=== PATIENT | female | born 1975 | race African-American/Black ===

== ENCOUNTER 2020-08-10 09:46 | Emergency (ER) | payer OTHER, SELFPAY ==
[2020-08-10] VITALS (21 sets, daily range): BP systolic 123–141; BP diastolic 72–93; PULSE 67–93; RESP 12–22; TEMP 37.1; O2SAT 100
--- NOTE | ~2020-08-10 | XR_ITS ---
EXAMINATION: XR chest 2V EXAM DATE: 08/10/2020 10:27 INDICATION: Right-sided chest pain for couple of days. TECHNIQUE: Frontal and lateral projections of the chest obtained and reviewed. Comparison is made to prior examination from 07/24/2017. FINDINGS: The lungs are clear. There are no pleural effusions. The cardiomediastinal silhouette is within normal limits. There is no pneumothorax suspected. The bones and soft tissues are unremarkab le. There is no significant interval change. IMPRESSION: No acute cardiopulmonary findings. Reviewed, dictated and finalized at location B. AND BEVERAGE CONTROLLER
--- NOTE | 2020-08-10 09:54 | ECG_ITS ---
Measurements Intervals [place] Rate: 82 P: 63 MI: 179 QRS: 74 QRSD: 84 T: 49 QT: 356 QTc: 418 Interpretive Statements SINUS RHYTHM NORMAL ECG Electronically Signed On 08-10-2020 9:56:39 STAVE LOG RIPSAW OPERATOR by Fred Camacho D.O.
[2020-08-10 10:29] LABS: Basophils Percent Auto 0.6 % (0.2-1.2); Eosinophils Absolute Auto 0.2 K/mm3 (0-0.3); Eosinophils Percent Auto 5.8 % (0-4.4); Hematocrit 36.8 % (37.0-47.0); Hemoglobin 11.8 g/dL (12.0-15.0); Immature Granulocyte Absolute 0.01 K/mm3 (0.00-0.031); Immature Granulocyte Percent A 0.3 % (0-0.5); Lymphocytes Absolute Auto 1.48 K/mm3 (0.9-3.2); Mean Corpuscular HGB Conc 32.1 g/dl (32-36); Mean Corpuscular Hemoglobin 28.8 pg (26-34); Mean Corpuscular Volume 89.8 fl (80-100); Mean Platelet Volume 9.6 fl (7.4-10.4); Monocytes Absolute Auto 0.3 K/mm3 (0.1-0.6); Monocytes Percent Auto 7.6 % (2.6-8.5); Neutrophils Absolute Auto 1.3 K/mm3 (1.3-6.7); Neutrophils Percent Auto 40.7 % (45.5-73.1); Platelet Count Result 250 k/mm3 (150-375); Red Cell Distribution Width 12.7 % (11.5-14.5); White Blood Count 3.3 K/mm3 (4.5-10.0)
--- NOTE | 2020-08-10 10:33 | ED.CHESTPAIN ---
HPI - Chest Pain General Chief Complaint: Chest Pain Stated Complaint: chest pain Time Seen by Provider: 08/10/20 09:49 Source: patient Mode of arrival: ambulatory Limitations: no limitations History of Present Illness HPI narrative: This is a 44 year old female who presents for evaluation right upper chest pain. She developed pain 2 days ago . This pain has been intermittent. She notices pain when she moves or leans forward. She came to ER because she developed right posterior back pain. She denies focal weakness, numbness or tingling. She denies cough, shortness of breath, abdominal pain, fever, chills. SHe took tylenol for her pain without relief of her pain. Related Data Allergies Allergy/AdvReac Type Severity Reaction Status Date / Time iodine Allergy Intermediate RASH Verified 12/29/19 13:22 Contrast Media Allergy Intermediate RASH Uncoded 12/29/19 13:22 Review of Systems Review of Systems: Narrative: CONSTITUTIONAL: Denies fever, chills, or sweats. EYES: Denies visual changes, redness, or discharge. ENT: Denies rhinorrhea, congestion, sore throat, or otalgia. CARDIOVASCULAR: , palpitations, or edema. RESPIRATORY: Denies cough or dyspnea. GASTROINTESTINAL: Denies abdominal pain, nausea, vomiting, or diarrhea. GENITOURINARY: Denies dysuria or hematuria. SKIN: Denies rash or itching. MUSCULOSKELETAL: Denies, joint pain, or myalgia. NEUROLOGIC: Denies headache, numbness, or weakness. PSYCHIATRIC: Denies anxiety or depression. All systems reviewed & are unremarkable except as noted in HPI and below Eyes: Eyes: Denies blind spots and Denies blurry vision PMFSH Past Medical History Medical History (Updated 08/10/20 @ 13:04 by Asha Acosta MD) Kidney mass Surgical History Surgical History (Updated 08/10/20 @ 10:59 by Asha Acosta MD) History of nephrectomy Social History Social History (Updated 08/10/20 @ 11:00 by Asha Acosta MD) Smoking status: Never smoker Alcohol intake: never Substance use: never Exam Narrative: Exam Narrative: GENERAL: Well-appearing, well-nourished, and in no acute distress. HEAD: Normocephalic, atraumatic EYES: PERRLA and EOMI, conjunctiva clear without discharge THROAT:Mucous membranes moist, NECK: Supple, without lymphadenopathy or mass RESPIRATORY: No respiratory distress, Airway patent, Respirations non-labored, Clear to auscultation without rales, rhonchi or wheeze; right sternal chest tenderness HEART: Regular rate and rhythm. No murmur heard. Normal peripheral pulses. ABDOMEN: Soft, nontender, nondistended, normal active bowel sounds. No masses. No rebound or guarding, No organomegaly. EXTREMITIES: No edema, normal strength with full range of motion. SKIN: Warm, dry, normal color without rash NEURO: Alert and oriented x3. CN 2-12 grossly intact. No focal deficits. PSYCH: Normal mood and affect. Course Reevaluation(s) Reevaluation #1: PAtient reports her pain improved after toradol. I Discussed labs are unremarkable. Troponin is negative and this is unlikely angina. She also has negative dimer. No mass found. I discussed with patient we will treat as musculoskeletal and if it worsens to return to ER or follow up with your primary care physician. Date: 08/10/20 Time: 13:01 Vital Signs Vital signs: Vital Signs Pulse Rate 93 08/10/20 09:50 Respiratory Rate 18 08/10/20 09:50 Blood Pressure 141/93 H 08/10/20 09:50 Pulse Oximetry 100 08/10/20 09:50 Temperature 98.7 F 08/10/20 10:10 Pulse Rate 74 08/10/20 13:20 Respiratory Rate 16 08/10/20 13:20 Blood Pressure 138/72 08/10/20 13:20 Pulse Oximetry 100 08/10/20 13:20 MDM - Chest Pain Lab Data Attestation: I reviewed the patient's lab results. Result diagrams: 08/10/20 10:21 08/10/20 10:21 Labs: Lab Results 08/10/20 08/10/20 08/10/20 Range/Units 10:21 10:21 10:21 WBC 3.3 L (4.5-10.0) K/mm3 RBC
[2020-08-10 10:40] LABS: Anion Gap 6 mmol/L (8-16); Blood Urea Nitrogen 19 mg/dL (7-17); Calcium 9.1 mg/dL (8.4-10.2); Carbon Dioxide 29 mmol/L (22-30); Chloride 103 mmol/L (98-107); Estimated CRCL calculation 47 ml/min; Estimated Glomerular Filt Rate > 60; Glucose 88 mg/dL (65-105); Potassium 3.7 mmol/L (3.4-5.0); Sodium 138 mmol/L (137-145)
[2020-08-10 10:41] LABS: Alanine Aminotransferase 20 U/L (4-35); Albumin Level 4.2 g/dL (3.5-5.1); Alkaline Phosphatase 65 U/L (38-126); Aspartate Amino Transferase 31 U/L (14-36); Bilirubin,Total 0.5 mg/dL (0.2-1.3); Lipase 143 U/L (23-300)
[2020-08-10 10:42] LABS: INR 0.9; Prothrombin Time 12.8 Seconds (11.1-14.7)
[2020-08-10 10:43] LABS: Partial Thromboplastin Time 28.6 SECONDS (22.3-36.8)
[2020-08-10 10:45] LABS: D Dimer 0.35 ug/mL (<0.48)
[2020-08-10 10:52] LABS: Troponin I < 0.012 ng/mL (0.000-0.034)
[2020-08-10] MEDS: LACTATED RINGERS 1,000 ML 999 ML IV CONT (11:04)
[2020-08-10] MEDS: KETOROLAC 15 MG/ML VIAL (*BKC) IV PUSH (11:05)
== END 2020-08-10 13:30 | disposition home or self-care (01) ==
PROVIDERS: Emergency Provider General Practice
DX: R07.89 Other chest pain (principal); Z90.5 Acquired absence of kidney
CPT/HCPCS: 36415; 71046; 80048; 80076; 81025; 83690; 84484; 85025; 85380; 85610; 85730; 93005; 96361; 96374; 99284; J1885; J7120

== ENCOUNTER → 2022-02-12 08:14 | Outpatient (CLI) | payer OTHER, SELFPAY ==
--- NOTE | ~2022-02-12 | XR_ITS ---
EXAMINATION: XR chest 2V DATE: 02/12/2022 08:34 INDICATION: Latent tuberculosis TECHNIQUE: PA and lateral views of the chest were obtained. COMPARISON: Chest radiograph dated / FINDINGS: The lungs remain clear with no focal airspace opacities, pulmonary edema, pleural effusion or pneumot horax. The cardiomediastinal silhouette is normal. Visualized bones and soft tissues are unremarkable . IMPRESSION: 1. Normal chest radiograph. Reviewed, dictated and finalized at location A. IMPRESSION: 1. Normal chest radiograph.
== END ==
DX: Z22.7 Latent tuberculosis (principal)
CPT/HCPCS: 71046

== ENCOUNTER 2022-12-16 06:45 | Emergency (ER) | payer OTHER, SELFPAY ==
[2022-12-16] VITALS (20 sets, daily range): BP systolic 107–139; BP diastolic 68–92; PULSE 70–92; RESP 12–22; TEMP 34.7–36.8; O2SAT 97–100
--- NOTE | ~2022-12-16 | XR_ITS ---
EXAMINATION: XR knee LT min 4V DATE: 12/16/2022 09:02 INDICATION: Left knee pain. TECHNIQUE: 4 views of left knee were obtained. COMPARISON: None. FINDINGS: Bone alignment is normal. No fracture. There is a benign bone island in medial femoral cond yle. Joint spaces are well maintained. There is no knee joint effusion. IMPRESSION: 1. Normal left knee. Reviewed, dictated and finalized at location A. IMPRESSION: 1. Normal left knee.
--- NOTE | ~2022-12-16 | XR_ITS ---
EXAMINATION: XR chest 2V DATE: 12/16/2022 09:02 INDICATION: Chest pain. TECHNIQUE: Frontal and lateral views of the chest were obtained. COMPARISON: Chest 2 views 02/12/2022 FINDINGS: The chest demonstrates clear lungs without pneumonia, pleural effusion, or pneumothorax. Th e heart size is normal. IMPRESSION: 1. No acute cardiopulmonary disease. Reviewed, dictated and finalized at location A.
--- NOTE | 2022-12-16 06:57 | ECG_ITS ---
Measurements Intervals [place] Rate: 78 P: 52 WI: 170 QRS: 65 QRSD: 82 T: 32 QT: 360 QTc: 410 Interpretive Statements SINUS RHYTHM POSSIBLE LEFT ATRIAL ENLARGEMENT BORDERLINE ECG COMPARED TO ECG 08/10/2020 09:55:32 NO SIGNIFICANT CHANGES Electronically Signed On 12-16-2022 8:13:56 CDT by Fred Camacho D.O.
--- NOTE | 2022-12-16 08:18 | ED.CHESTPAIN ---
HPI - Chest Pain General Chief Complaint: Chest Pain Stated Complaint: chest pian Time Seen by Provider: 12/16/22 07:08 Source: patient and RN notes reviewed Mode of arrival: ambulatory Limitations: no limitations History of Present Illness HPI narrative: This is a 47 year old female who presents for evaluation of chest pain. Patient reports having dull aching chest pain for 2 weeks. Her pain is located to upper sternum and it is nonradiating. She notices pain more with movement and breathing. She denies nausea, vomiting cough, fever, shortness of breath. She also reports 2 months of anterior knee pain. She denies history of DVT, calf pain, OCP. She rates chest pain 6/10. She is taking tylenol for her pain. Related Data Allergies Allergy/AdvReac Type Severity Reaction Status Date / Time iodine Allergy Intermediate RASH Verified 12/16/22 07:10 Contrast Media Allergy Intermediate RASH Uncoded 12/16/22 07:10 Review of Systems Constitutional: Constitutional: Denies weakness Cardiovascular: Cardiovascular: Reports chest pain, Denies syncope, Denies rapid heart rate, Denies irregular heart rhythm, Denies leg edema and Denies dyspnea Respiratory: Respiratory: Denies chest congestion, Denies hemoptysis, Denies excessive phlegm production and Denies dyspnea Gastrointestinal: Gastrointestinal: Denies abdominal pain, Denies hematochezia, Denies diarrhea and Denies vomiting Genitourinary: Genitourinary: Denies hematuria and Denies dysuria Musculoskeletal: Musculoskeletal: Reports arthralgias, Denies joint swelling, Denies loss of height and Denies muscle weakness Neurologic: Denies syncope, Denies focal weakness and Denies weakness PMFSH Past Medical History Medical History Kidney mass Surgical History Surgical History History of nephrectomy Social History Social History Smoking status: Never smoker Alcohol intake: never Substance use: never Exam Narrative: GENERAL: Well-appearing, well-nourished, and in no acute distress. HEAD: Normocephalic, atraumatic EYES: PERRLA and EOMI, conjunctiva clear without discharge EARS: TM's clear bilaterally without erythema or dullness NOSE: Nares clear, no rhinorrhea or epistaxis THROAT:Mucous membranes moist, Oropharynx normal without erythema, exudate, peritonsillar swelling or fluctuance NECK: Supple, without lymphadenopathy or mass RESPIRATORY: No respiratory distress, Airway patent, Respirations non-labored, Clear to auscultation without rales, rhonchi or wheeze HEART: Regular rate and rhythm. No murmur heard. Normal peripheral pulses. ABDOMEN: Soft, nontender, nondistended, normal active bowel sounds. No masses. No rebound or guarding, No organomegaly. EXTREMITIES: No edema, normal strength with full range of motion. SKIN: Warm, dry, normal color without rash NEURO: Alert and oriented x3. CN 2-12 grossly intact. No focal deficits. PSYCH: Normal mood and affect. Course Reevaluation(s) Reevaluation #1: I Discussed with patient troponin negative x 2. She is perc negative for PE. I Discussed discharge plan and she denies any other questions or concerns. Date: 12/16/22 Time: 12:07 Vital Signs Vital signs: Vital Signs Temperature 97.7 F 12/16/22 06:50 Pulse Rate 83 12/16/22 06:50 Respiratory Rate 16 12/16/22 06:50 Blood Pressure 139/70 12/16/22 06:50 Pulse Oximetry 97 12/16/22 06:50 Temperature 94.4 F L 12/16/22 12:00 Pulse Rate 76 12/16/22 12:00 Respiratory Rate 17 12/16/22 12:00 Blood Pressure 118/72 12/16/22 12:00 Pulse Oximetry 98 12/16/22 11:18 Oxygen Delivery Room Air 12/16/22 07:17 MDM - Chest Pain Differential Diagnosis Differential diagnosis: Likely fracture of rib, pneumothorax, unstable angina pectoris, atypical chest pain, costo
[2022-12-16] MEDS: KETOROLAC 15 MG/ML VIAL (*BKC) IV PUSH (08:37)
--- NOTE | 2022-12-16 08:39 | PC.NURSE ---
pt to xray via stretcher at this time
[2022-12-16 08:58] LABS: Eosinophils Absolute Auto 0.1 K/mm3 (0-0.3); Eosinophils Percent Auto 2.6 % (0-4.4); Hematocrit 40.2 % (37.0-47.0); Hemoglobin 12.8 g/dL (12.0-15.0); Immature Granulocyte Absolute 0.01 K/mm3 (0.00-0.031); Immature Granulocyte Percent A 0.3 % (0-0.5); Lymphocytes Absolute Auto 1.37 K/mm3 (0.9-3.2); Lymphocytes Percent Auto 44.9 % (18.3-44.2); Mean Corpuscular HGB Conc 31.8 g/dl (32-36); Mean Corpuscular Hemoglobin 28.3 pg (26-34); Mean Corpuscular Volume 88.7 fl (80-100); Mean Platelet Volume 9.8 fl (7.4-10.4); Monocytes Absolute Auto 0.2 K/mm3 (0.1-0.6); Monocytes Percent Auto 5.9 % (2.6-8.5); Neutrophils Absolute Auto 1.4 K/mm3 (1.3-6.7); Neutrophils Percent Auto 45.3 % (45.5-73.1); Platelet Count Result 242 k/mm3 (150-375); Red Blood Count 4.53 M/mm3 (4.2-5.4); Red Cell Distribution Width 12.9 % (11.5-14.5); White Blood Count 3.1 K/mm3 (4.5-10.0)
[2022-12-16 09:07] LABS: Alanine Aminotransferase 27 U/L (6-35); Albumin Level 3.9 g/dL (3.5-5.1); Alkaline Phosphatase 83 U/L (38-126); Anion Gap 5 mmol/L (8-16); Aspartate Amino Transferase 33 U/L (14-36); Bilirubin,Total 0.4 mg/dL (0.2-1.3); Blood Urea Nitrogen 13 mg/dL (7-17); Carbon Dioxide 33 mmol/L (22-30); Chloride 102 mmol/L (98-107); Estimated CRCL calculation 56 ml/min; Estimated Glomerular Filt Rate > 60; Glucose 92 mg/dL (65-110); Lipase 138 U/L (23-300); Potassium 3.8 mmol/L (3.4-5.0); Sodium 140 mmol/L (137-145)
[2022-12-16 09:09] LABS: INR 0.9; Prothrombin Time 12.9 Seconds (11.1-14.7)
[2022-12-16 09:19] LABS: Troponin I < 0.012 ng/mL (0.000-0.034)
[2022-12-16 11:42] LABS: Troponin I < 0.012 ng/mL (0.000-0.034)
== END 2022-12-16 12:27 | disposition home or self-care (01) ==
PROVIDERS: Emergency Provider General Practice
DX: R07.89 Other chest pain (principal); M25.562 Pain in left knee
CPT/HCPCS: 36415; 71046; 73564; 80053; 83690; 84484; 85025; 85610; 85730; 93005; 96374; 99284; J1885

== ENCOUNTER 2024-09-06 14:18 | Outpatient (CLI) | payer OTHER, SELFPAY ==
--- NOTE | ~2024-09-06 | MM_ITS ---
EXAMINATION: MM screening yue BI w tay HISTORY: Screening TECHNIQUE: Craniocaudal and mediolateral oblique 3-D tomosynthesis images were obtained and synthetic 2-D images were generated. CAD analysis was submitted and interpreted. COMPARISON: Comparison to multiple prior studies sequentially, with oldest reviewed study dated 02/13. BREAST PARENCHYMAL COMPOSITION: Dense: The breasts are heterogeneously dense, which may obscure small masses FINDINGS: There is no evidence of suspicious mass, calcification, or architectural distortion to sugg est malignancy in either breast. There has been no suspicious interval change. IMPRESSION: 1. No mammographic evidence of malignancy. 2. Recommend routine screening mammography in one year. BI-RADS Category 1: Negative Reviewed, dictated and finalized at location A.
--- OUTSIDE RECORDS SUMMARY | 2024-09-06 16:36 | XMS_ITS | Clinical Summary ---
Author Organization [facility] Address [address] [place] [address] Phone Care Team Providers Care Environmental Health Technician Name Role Phone Unavailable Primary Care Provider Unavailabl e Allergies Active Allergy Reactions Criticality Noted Date Comments Iodinated Contrast Media Rash Low 09/14/2014 Iodine Rash Low 09/14/2014 Medications multivitamin (DAILY-JEREMY) tablet Take 1 Tab by mouth daily. Active Active Problems No known active problems Social History Tobacco Use Types Packs/Day Years Used Date Smoking Tobacco: Never Comments No Sex and Gender Information Value Date Recorded Sex Assigned at Not on file Legal Sex Female 9:40 AM CDT Gender Identity Not on file Sexual Orientation Not on file Last Filed Vital Signs Vital Sign Reading Time Taken Comments Blood Pressure 117/82 09/14/2014 10:02 AM CDT Pulse 90 09/14/2014 10:02 AM CDT Temperature 36.9 C (98.5 F) 09/14/2014 10:02 AM CDT Respiratory Rate 18 09/14/2014 10:02 AM CDT Oxygen Saturation 100% 09/14/2014 10:02 AM CDT Inhaled Oxygen Concentration - - Weight 52 kg (114 lb 9.6 oz) 09/14/2014 10:02 AM CDT Height 165.1 cm (5' 5 ) 09/14/2014 10:02 AM CDT Body Mass Index 19.07 09/14/2014 10:02 AM CDT Plan of Treatment Health Maintenance Due Date Last Done Comments HEPATITIS B VACCINES (1 of 3 - 19+ 3-dose series) 1992 HPV/Cotest (21-29) 1994 PAP SMEAR 1994 CERVICAL CANCER SCREENING 11/02/2003 HPV/Cotest (30-65) 11/02/2003 PAP SMEAR 11/02/2003 BREAST CANCER SCREENING 10/29/2015 10/28/2014 COLORECTAL SCREENING 2018 Colorectal Cancer Screening 2018 FIT-DNA Q 3 years 2018 FIT/FOBT Q 1 year 2018 Flex Sig/CT Colonography Q 5 years 2018 DTAP/TDAP/TD VACCINES (2 - T d or Tdap) 10/24/2020 10/24/2010 ZOSTER VACCINE (1 of 2) 11/02/2023 INFLUENZA VACCINE (#1) 2024 8, 01/30/2017, 02/22/2016, Additional history exists
--- OUTSIDE RECORDS SUMMARY | 2024-09-06 16:36 | XMS_ITS | Encounter Summary ---
Author Organization [facility] Address [address] [place] [address] Care Team Providers Care Rn Lpn Lvn Name Role Phone Carol Edwards MD Primary Care Provider [phone] [facility]arzyna [facility]arillo [facility] Primary Care Provider [phone] Carol Edwards MD Primary Care Provider Antonio Francis MD Primary Care Provider [phone] Reason for Visit * Reason Onset Date Comments Order 03/01/2020 Encounter Details Date Type Department Care Team (Late st Contact Info) Description 03/01/2020 Telephone [facility] [address] [place] [address] Carol Edwards MD [address] [id number] Order Social History Tobacco Use Types Packs/Day Years Used Date Smoking Tobacco: Never Smokeless Tobacco: Never Sex and Gender Information Value Date Recorded Sex Assigned at Not on file Gender Identity Not on file Sexual Orientation Not on file documented as of this encounter Patient Instructions * Patient Instructions* Francine Roque - 03/01/2020 11:51 AM CDT Rosalie from [facility] called in regards to pt needing new orders for imaging. She can be reached at [phone] EXT [phone]. documented in this encounter Miscellaneous Notes * Telephone Encounter - Parish Estrada - 03/01/2020 1:38 PM CDT Patient would like a new order for imaging with/out contrast. Message has been sent to Dr. Edwards to change order. documented in this encounter Plan of Treatment Upcoming Encounters Date Type Department Care Team (Late st Contact Info) Description 09/27/2024 11:20 AM CDT Office Visit [facility] - Family Medicine [address] [place] [address], [place] [id number] Antonio Francis MD [address] [place] [address] [place] [phone] documented as of this encounter Visit Diagnoses Not on filedocumented in this encounter Additional Health Concerns Infection Onset Date Last Indicated Resolved Time COVID-19 Under Investigation 04/13/2020 04/13/2020 04/14/2020 2:15 PM 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 documented as of this encounter Care Teams Rn Lpn Lvn Relationship Specialty Start Date End Date Carol Edwards MD [address] [facility] [place] [phone] PCP - General Family Medicine 02/06/17 07/22/21 Katarzyna Camarillo APRN-SCREEN TENDER HELPER [address] [facility] [address] [place] [phone] PCP - General 07/23/21 10/03/21 Carol Edwards MD [address] [facility] [place] [phone] PCP - General 10/04/21 05/23/24 Antonio Francis MD [address] [place] [address] PCP - General Family Medicine 05/24/24 documented as of this encounter
--- OUTSIDE RECORDS SUMMARY | 2024-09-06 16:36 | XMS_ITS | Clinical Summary ---
Author Organization [facility] Address [address] [place] [address] Care Team Providers Care Precision Devices Inspector/Tester Name Role Phone Antonio Francis MD Primary Care Provider [phone] Source Comments [facility],non-owned Affiliates and Associated Physician Practices is amultiple site organization consisting of ambulatory clinics and hospital sitesin [place], [place], [place] and [place]. This disclosure is being madepursuant to the Care Everywhere program and may not contain all information available regarding this patient. Last updated 18.[facility] Allergies Active Allergy Reactions Criticality Noted Date Comments Contrast-Iodinated Agents For Ct/Other Rash Medium 09/14/2014 Medications * Be aware that medications may not be up to date on this document. Alwaysverify current medications with the patient. Medication Sig Dispensed Refills Start Date End Date Status Multiple Vitamins-Minerals (MULTIVITAMIN ADULT PO) Take 1 tablet by mouth once daily Active Tdap, ylhdawk-uotfqrrhgr-neh ll pertussis, (Boostrix) 5-2.5-18.5 LF-MCG/0.5 (7y+) injection 06/28/2021 Active measles, mumps and rubella vaccine (M-M-R II) injection 06/28/2021 Active rifAMPin (Rifadin) 300 MG capsule 12/05/2021 Active COVID-19 mRNA Virus Vaccine (COVID-19 MRNA VACCINE, PFIZER, IM) 07/31/2021 Acti ve varicella virus vaccine (Varivax) 1350 PFU/0.5ML 06/28/2021 Active pantoprazole EC (Protonix) 40 MG tabletIndications:GERD without esophagitis Take 1 (one) tablet by mouth once daily for 30 days 30 tablet 3 05/24/2024 Active Active Problems Problem Noted Date Diagnosed Date ERRONEOUS ENCOUNTER--DISREGARD 08/23/2024 Personal history of latent tuberculosis infectio n 05/24/2024 Elevated blood pressure read ing in office without diagnosis of hypertension 05/24/2024 Assessment & Plan (05/24/2024 2:27 PM SOAKING ROOM OPERATOR): Initially elevated, repeat BP within normal limits Continue to monitor Arthralgia of shoulder 05/22/2024 Vitamin D deficiency 11/09/2014 Renal cell carcinoma 03/18/2014 Overview (09/10/2018): Overview: 2011 LEFT renal cell cancer Discovered incidentally at investigation for pre eclampsia Stage 1 laparascopically Assessment & Plan (05/24/2024 2:27 PM SOAKING ROOM OPERATOR): S/p resection Left side Encounters Date Type Department Care Team Description 08/23/2024 10:30 AM CDT Office Visit [facility] - Internal Med [address] [place] [phone] Hiro Orellana MD ERRONEOUS ENCOUNTER--DISREGARD (Primary Dx) 08/23/2024 Travel 06/16/2024 11:00 AM SOAKING ROOM OPERATOR Testing Visit [facility] - ENT [address] [place] [phone] Kobe Elizabeth, PhD Sensorineural hearing loss (SNHL) of both ears 06/15/2024 Travel 06/15/2024 Telephone [facility] - Family Medicine [address] [place] [phone] Antonio Francis MD Follow-up 06/11/2024 Telephone [facility] - Family Medicine [address] [place] [phone] Antonio Francis MD Results 06/09/2024 Telephone [facility] - Family Medicine [address] [facility], Second [place] [phone] Antonio Francis MD Order ([facility] unable to find patient orders, she is at the lab at this time) from Last 3 Months Immunizations Name Administration Dates Next Due INFLUENZA VACCINE, TRIV. (AF LURIA, FLUZONE TRIVALENT; 6MO+) (IIV3) 03/15/2015 Covid Staaff primary monoval ent 12+ yr 0.3mL Purple cap 06/27/2020,06/10/2020 FLU VACCINE TRI IIV3 SPLIT P F IM (FLUVIRIN) 01/30/2017,02/22/2016 INFLUENZA VACCINE 04/02/2021, 2,03/24/2012,2010 INFLUENZA VACCINE, QUADR. (A FLURIA, FLUZONE QUADRIVALENT; 6MO+) (IIV4) 03/19/2011 INFLUENZA VACCINE, QUADR. (F LUZONE; FLULAVAL; FLUARIX; AFLURIA QUADRIVALENT; 6MO+), 0.5 ML (IIV4) 03/18/2018 Influenza Intradermal 03/18/2014 MMR 11/20/2010 MMR VACCINE 06/28/2021 POLIO IPV 08/02/2010 TDAP (7yrs+) 10/24/2010 TDAP, HISTORIC VACCINE 06/28/2021 VARICELLA 06/28/2021 iNFLUENZA VACCINE, RECOM-CAMARA, QUADR. (FLUBLOCK QUADRIVALENT; 18Y+) (RIV4) 02/17/2020 Family History Medical History Relation Name Comments None Known Brother 1 None Known Brother 2 CVA Father None Known Sister 1 None Known Sister 2 CAD (Coronary Artery Disease) Neg Hx Cancer - Breast Neg Hx Cancer - Colon Neg Hx Relation Name Status Comments Brother 1 Alive Brother 2 Alive Brother 3 Alive Brother 4 Alive Brother 5 Alive Brother 6 Alive Father Alive Mother Alive Sister 1 Alive Sister 2 Alive Social History Tobacco Use Types Packs/Day Years Used Date Smoking Tobacco: Never Smokeless Tobacco: Never Tobacco Cessation:Counseling Given: Not Answered Alcohol Use Standard Drinks/Week Comments Never 0 (1 standard drink = 0.6 oz pur e alcohol) PHQ-2 Answer Date Recorded Patient Health Questionnaire-2 Score 0 08/23/2024 Sex and Gender Information Value Date Recorded Sex Assigned at Not on file Gender Identity Not on file Sexual Orientation Not on file Last Filed Vital Signs Vital Sign Reading Time Taken Comments Blood Pressure 158/97 08/23/2024 10:31 AM CDT Pulse 90 08/23/2024 10:31 AM CDT Temperature 36.6 C (97.8 F) 08/23/2024 10:31 AM CDT Respiratory Rate - - Oxygen Saturation 100% 08/23/2024 10:31 AM CDT Inhaled Oxygen Concentration - - Weight 59 kg (130 lb) 08/23/2024 10:31 AM CDT Height 165.1 cm (5' 5 ) 08/23/2024 10:31 AM CDT Body Mass Index 21.63 08/23/2024 10:31 AM CDT Plan of Treatment Upcoming Encounters Date Type Department Care Team (Late st Contact Info) Description 09/27/2024 11:20 AM CDT Office Visit [facility] - Family Medicine [address] [place] [address], [place] [phone] Antonio Francis MD [address] [place] [phone] Health Maintenance Due Date Last Done Comments COLON MONITORING 1973 COLONOSCOPY - COLON CA SCREENING 1973 CT COLONOGRAPHY - COLON CA SCREENING 1973 FIT - COLON CA SCREENING 1973 FLEX SIG - COLON CA SCREENING 1973 HEPATITIS B VACCINE (1 of 3 - 19+ 3-dose series) 1992 MAMMOGRAM 10/08/2020 10/08/2018 PAP with HPV 09/11/2023 09/10/2018 PNEUMOCOCCAL VACCINE 50+ (1 of 1 - PCV) 11/02/2023 ZOSTER VACCINE (1 of 2) 11/02/2023 COVID-19 VACCINE (4 - season) 2024 07/31/2021, 06/27/2020, 06/10/2020 INFLUENZA VACCINE (Season Ended) 2025 04/02/2021, 02/17/2020, 03/18/2018, Additional history exists COLOGUARD (AGES 45-75) - COLON CA SCREENING 06/16/2027 06/16/2024, 06/16/2024 Colorectal Cancer Screening 06/16/2027 LIPID TESTING 06/09/2029 06/09/2024, 01/31, 10/01/2021, Additional history exists DTAP/TDAP/TD VACCINES (3 - Td or Tdap) 06/28/2031 06/28/2021, 10/24/2010 HIV SCREENING Completed 01/31/2018 (Done Outside Per Report) HEPATITIS C SCREENING Completed 02/29/2020 DEPRESSION SCREENING Completed 08/23/2024, 05/24/2024, 01/30/2022 HIB VACCINE Aged Out No longer eligi ble based on patient's age to complete this topic HPV VACCINE Aged Out No longer eligi ble based on patient's age to complete this topic MENINGOCOCCAL (Group B) VACCINE SHARED DECISION-MAKING Aged Out No longer eligible based on patient's age to complete this topic MENINGOCOCCAL GROUPS A/C/Y/W VACCINE Aged Out No longer eligible based on patient's age to complete this topic Procedures Procedure Name Priority Date/Time Associated Diagnosis Comments AUDIOLOGY/TYMPANOMETRY ORDER Routine 06/16/2024 11:39 AM SOAKING ROOM OPERATOR COLOGUARD TEST Routine 06/16/2024 9:05 AM SOAKING ROOM OPERATOR Colon cancer screening LIPID PROFILE Routine 06/09/2024 11:32 AM SOAKING ROOM OPERATOR Annual physical exam COMPREHENSIVE METABOLIC PANEL Routine 06/09/2024 11:32 AM SOAKING ROOM OPERATOR Renal cell carcinoma of left kidney CBC W AUTO DIFFERENTIAL Routine 06/09/2024 11:32 AM SOAKING ROOM OPERATOR Annual physical exam HEPATITIS C AB W/RFLX TO HCV RNA QN PCR 02/29/2020 11:44 AM CDT MAMMOGRAM 10/08/2018 9:47 AM CDT HPV DETECTION HIGH RISK GERMAN Routine 09/10/2018 10:05 AM CDT Annual physical exam from Last 3 Months or Most Recently Relevant to Health Maintenance Results * AUDIOLOGY/TYMPANOMETRY ORDER (06/16/2024 11:39 AM SOAKING ROOM OPERATOR) Addenda Addendum by Kobe Elizabeth, PhD on 06/16/2024 11:39 AM SOAKING ROOM OPERATOR Narrative Kobe Elizabeth, PhD - 06/16/2024 11:39 AM SOAKING ROOM OPERATOR HISTORY: Noreen Davis is a 48 year old female was seen for an assessment of their hearing. Patient indicated that a video reimbursement specialist is not necessary for this appointment. The patient reports difficulty hearing. There is not a report of dizziness. There is not a report of tinnitus. There is not a report of otalgia. There is not a report of noise exposure. There is not a history of hearing loss in the family. There is not a history of previous ear surgery. RESULTS: Pure-tone air/bone conduction testing revealed a NORMAL sloping to moderate sensorineural hearing in the right ear and a normal sloping to moderate sensorineural hearing in the left ear. Speech Folder And Notcher Thresholds is in good agreement with pure tone average(see speech audiometry for details). Speech understanding was excellent in the right ear and excellent in the left ear. Immittance measures revealed a Type A tympanogram in the right ear, indicating normal middle ear function. Results for the left ear revealed a Type A tympanogram, indicating normal middle ear function in that ear. Findings were reviewed and discussed with Noreen Davis following the hearing evaluation. All questions were answered. PLAN: 1. The risks and benefits of my recommendations, as well as other treatment options were discussed today. 2. I recommend that the patient follow up with their facility, an ENT or PCP PRN. 3. ANNUAL HEARING TESTS. 4. AMIRA Elizabeth, Ph.D., NANNETTE., [facility] Mult Au Matic Operator, Director Division of Clinical Audiology Department of Otolaryngology- Head & Neck Surgery [facility] Kobe Elizabeth PhD AUDIOLOGY SERVICES O RDERABLES * [id number] COLOGUARD TEST *Associate with Z12.11 OR Z12.12 Dx Codes* (06/16/2024 9:05 AM SOAKING ROOM OPERATOR) Cologuard Negative Negative [facility] Comment: NEGATIVE TEST RESULT. A negative Cologuard result indicates a low likelihood that a colorectal cancer (CRC) or advanced adenoma (adenomatous polyps with more advanced pre-malignant features) is present. The chance that a person with a negative Cologuard test has a colorectal cancer is less than 1 in 1500 (negative predictive value >99.9%) or has an advanced adenoma is less than 5.3% (negative predictive value 94.7%). These data are based on a prospective cross-sectional study of 10,000 individuals at average risk for colorectal cancer who were screened with both Cologuard and colonoscopy. (Baldev Ovalles et al, N Engl J Med 2014;370(14):3500-3948) The normal value (reference range) for this assay is negative. COLOGUARD RE-SCREENING RECOMMENDATION: Periodic colorectal cancer screening is an important part of preventive healthcare for asymptomatic individuals at average risk for colorectal cancer. Following a negative Cologuard result, the [place] Cancer Society and U.S. Multi-Society Task Force screening guidelines recommend a Cologuard re-screening interval of 3 years. References: [place] [employer] Society Guideline for Colorectal Cancer Screening: https://www.cancer.org/cancer/enhvs-csjlam-fyuwcz/mdxmmwfra-noodeuepz-fsnjcwt/ acs-recommendations.html.; Elliott GARCIA, Lucy LONG, Paul RasconK, Colorectal Cancer Screening: Recommendations for Physicians and Patients from the U.S. Multi-Society Task Force on Colorectal Cancer Screening , Am J Gastroenterology 2017; 112:7682-6760. TEST DESCRIPTION: Composite algorithmic analysis of stool DNA-biomarkers with hemoglobin immunoassay. Quantitative values of individual biomarkers are not reportable and are not associated with individual biomarker result reference ranges. Cologuard is intended for colorectal cancer screening of adults of either sex, 45 years or older, who are at average-risk for colorectal cancer (CRC). Cologuard has been approved for use by the U.S. FDA. The performance of Cologuard was established in a cross sectional study of average-risk adults aged 50-84. Cologuard performance in patients ages 45 to 49 years was estimated by sub-group analysis of near-age groups. Colonoscopies performed for a positive result may find as the most clinically significant lesion: colorectal cancer [4.0%', advanced adenoma (including sessile serrated polyps greater than or equal to 1cm diameter) [20%' or non- advanced adenoma [31%'; or no colorectal neoplasia [45%'. These estimates are derived from a prospective cross-sectional screening study of 10,000 individuals at average risk for colorectal cancer who were screened with both Cologuard and colonoscopy. (Baldev Child al, N Engl J Med 2014;370(14):7373-3853.) Cologuard may produce a false negative or false positive result (no colorectal cancer or precancerous polyp present at colonoscopy follow up). A negative Cologuard test result does not guarantee the absence of CRC or advanced adenoma (pre-cancer). The current Cologuard screening interval is every 3 years. ([place] Cancer Society and U.S. Multi-Society Task Force). Cologuard performance data in a 10,000 patient pivotal study using colonoscopy as the reference method can be accessed at the following location: www.[employer]/results. Additional description of the Cologuard test process, warnings and precautions can be found at www.Ikrord.com. Stool STOOL SPECIMEN / Unknown 06/16/2024 9:05 AM SOAKING ROOM OPERATOR 06/17/2024 10:09 AM SOAKING ROOM OPERATOR Antonio Francis MD LAB - CHEMISTRY NEFTALI GONCALVES [facility] Organization Address City/State/[facility] Co de Phone Number [employer] [address] [place] [address] [employer] [address] [place] [address]. [place] [address] * (ABNORMAL) CBC W/ DIFFERENTIAL (06/09/2024 11:32 AM SOAKING ROOM OPERATOR) White Blood Cell Count 3.4(L) 3.8 - 10.8 Thousand/ uL [facility] RBC 4.23 3.80 - 5.10 Million/u L [facility] Hemoglobin 12.1 11.7 - 15.5 g/dL [facility] Hematocrit 38.5 35.0 - 45.0 % [facility] MCV 91.0 80.0 - 100.0 fL [facility] MCH 28.6 27.0 - 33.0 pg [facility] MCHC 31.4(L) 32.0 - 36.0 g/dL [facility] Comment: For adults, a slight decrease in the calculated MCHC value (in the range of 30 to 32 g/dL) is most likely not clinically significant; however, it should be interpreted with caution in correlation with other red cell parameters and the patient's clinical condition. RDW 12.9 11.0 - 15.0 % [facility] Platelet Count 213 140 - 400 Thousand/ uL [facility] MPV 11.2 7.5 - 12.5 fL [facility] Neutrophil Absolute 1258(L) 1500 - 7800 cells/uL [facility] Lymphocytes Absolute 1816 850 - 3900 cells/uL [facility] Absolute Monocytes 238 200 - 950 cells/uL [facility] Eosinophils Absolute 58 15 - 500 cells/uL [facility] Basophils Absolute 31 0 - 200 cells/uL [facility] Granulocytes % 37 % [facility] Lymphocytes % 53.4 % [facility] Monocytes % 7.0 % [facility] Eosinophils % 1.7 % [facility] Basophils % 0.9 % [facility] Comment: REPORT COMMENT: FASTING:YES Test Performed at: [facility] [address] CHARLES FORTE MD Blood BLOOD SPECIMEN / Unknown 06/09/2024 11:32 AM SOAKING ROOM OPERATOR 06/09/2024 11:33 AM SOAKING ROOM OPERATOR Antonio Francis MD LAB - HEMATOLOGY ORD ERABLES [address] [address] * (ABNORMAL) COMPREHENSIVE METABOLIC PANEL (06/09/2024 11:32 AM SOAKING ROOM OPERATOR) Glucose 92 65 - 99 mg/dL [facility] Comment: Fasting reference interval BUN 17 7 - 25 mg/dL [facility] Creatinine 1.17(H) 0.50 - 1.03 mg/dL [facility] eGFR by Cystatin C 57(L) > OR = 60 mL/min/1. 73m2 [facility] BUN/Creatinine Ratio 15 6 - 22 (calc) [facility] Sodium 140 135 - 146 mmol/L [facility] Potassium 4.1 3.5 - 5.3 mmol/L [facility] Chloride 104 98 - 110 mmol/L [facility] CO2 31 20 - 32 mmol/L [facility] Calcium 9.5 8.6 - 10.4 mg/dL [facility] Protein Total 7.3 6.1 - 8.1 g/dL [facility] Albumin 4.3 3.6 - 5.1 g/dL [facility] Globulin Total 3.0 1.9 - 3.7 g/dL (calc) [facility] Albumin/Globulin Ratio 1.4 1.0 - 2.5 (calc) [facility] Bilirubin Total 0.6 0.2 - 1.2 mg/dL [facility] Alkaline Phosphatase 90 37 - 153 U/L [facility] AST 26 10 - 35 U/L [facility] ALT 21 6 - 29 U/L [facility] Comment: Test Performed at: [facility] [address] CHARLES FORTE MD Blood BLOOD SPECIMEN / Unknown 06/09/2024 11:32 AM SOAKING ROOM OPERATOR 06/09/2024 11:33 AM SOAKING ROOM OPERATOR Antonio Francis MD LAB - CHEMISTRY ORDE IVANNA [address] [address] * (ABNORMAL) LIPID PROFILE (06/09/2024 11:32 AM SOAKING ROOM OPERATOR) Cholesterol 241(H) <200 mg/dL [facility] HDL Cholesterol 75 > OR = 50 mg/dL [facility] Triglycerides 62 <150 mg/dL [facility] LDL Calculated 151(H) mg/dL (calc) [facility] Comment: Reference range: <100 Desirable range <100 mg/dL for primary prevention; <70 mg/dL for patients with CHD or diabetic patients with > or = 2 CHD risk factors. LDL-C is now calculated using the Jamarcus-Haven calculation, which is a validated novel method providing better accuracy than the Friedewald equation in the estimation of LDL-C. Jamarcus BHATIA et al. VERNA. 2013;310(19): 3169-9163 (http://education.[employer].Myandb/faq/WSC200) CHOL/HDLC RATIO 3.2 <5.0 (calc) [facility] Non HDL Cholesterol 166(H) <130 mg/dL (calc) [facility] Comment: For patients with diabetes plus 1 major ASCVD risk factor, treating to a non-HDL-C goal of <100 mg/dL (LDL-C of <70 mg/dL) is considered a therapeutic option. Test Performed at: [facility] [address] [place] [address] CHARLES FORTE MD Blood BLOOD SPECIMEN / Unknown 06/09/2024 11:32 AM SOAKING ROOM OPERATOR 06/09/2024 11:33 AM SOAKING ROOM OPERATOR Antonio Francis MD LAB - CHEMISTRY NEFTALI GONCALVES Performing Organization Address [facility] Co de Phone Number [address] [address] * HEPATITIS C AB W/RFLX TO HCV RNA QN PCR (02/29/2020 11:44 AM CDT) Hepatitis C Antibody NON-REACTI VE NON-REACT QUIANA [facility] Signal to Cut-Off 0.02 <1.00 [facility] Comment: HCV antibody was non-reactive. There is no laboratory evidence of HCV infection. In most cases, no further action is required. However, if recent HCV exposure is suspected, a test for HCV RNA (test code 68465) is suggested. For additional information please refer to http://education.Plazapoints (Cuponium)/faq/GPB10a8 (This link is being provided for informational/ educational purposes only.) Test Performed at: [facility] [address] [place] [address] DOROTHEA ISABEL DO,MPH 02/29/2020 11:4 4 AM CDT 02/29/2020 11:51 AM CDT Carol Edwards MD LAB - CHEMISTRY NEFTALI GONCALVES Performing Organization Address [facility] Co de Phone Number [place] [phone] [place] [address] * MAMMOGRAM (10/08/2018 9:47 AM CDT) Anatomical Region Laterality Modality Other Narrative 10/08/2018 9:47 AM CDT Ordered by an unspecified provider. Scanned Document SCANNING ONLY * HPV DETECTION HIGH RISK GERMAN (09/10/2018 10:05 AM CDT) High Risk Human Papilloma Result Not Detected Not Detected 09/14/2018 3:38 PM CDT [facility] High Risk Human Papilloma Interp 09/14/2018 3:38 PM CDT [facility] Comment:High Risk Human Mal lloma Virus was Not Detected. Pathology/Cytolo gy MISCELLANEOUS SAMPLES / Unknown 09/10/2018 10:05 AM CDT 09/11/2018 10:05 AM CDT Narrative [facility] - 09/14/2018 3:38 PM CDT Nucleic acid isolated from the specimen was analyzed with a nucleic acid amplification test (FDA approved Gen-Probe HPV Assay) to detect high risk human papilloma virus (Types: 16, 18, 31, 33, 35, 39, 45, 51, 52, 56, 58, 59, 66, and 68). The reference range is Not Detected . Comment: These test results should not be used as the sole basis for clinical assessment and treatment of patients. These results should always be correlated with other available data (cytology, histology, and clinical information). Carol Edwards MD LAB - MICROBIOLOGY O RDERABLES Performing Organization Address City/State/[facility] Co de Phone Number [facility] [address] [phone] from Last 3 Months or Most Recently Relevant to Health Maintenance Care Teams Precision Devices Inspector/Tester Relationship Specialty Start Date End Date Antonio Francis MD [address] [phone] PCP - General Family Medicine 05/24/24
--- OUTSIDE RECORDS SUMMARY | 2024-09-06 16:36 | XMS_ITS | Continuity of Care Document ---
Author Organization [facility] Address [address] [facility] [address] [place] [address] Phone Care Team Providers [employer] Name Role Phone Unavailable Unavailable Unavailable Advance Directives Directive Yes / No Effective Date File Name No Information Encounters Encounter Description Practice Location Reason(s) For Visit Diagnoses Date Provider Providers Copied on Encounter [facility], [address], [place], [place], [id number], tel:[phone] [facility] No Information No Information Referring Provider: BETH KONG, [facility] [place], [address]. tel:[phone] Family History Family Member Type Diagnosis Age At Onset No Information Payers Payer name Insurance type Covered republican ID Authoriza tion(s) No Information Social History Type Description Quantity Date Captured Comments Sex Female Smoking Status No Information Chief Complaint And Reason For Visit No Information History Of Present Illness Encounter Date Complaint History Of Prese nt Illness No Information Instructions Date Instruction Additional Infor mation No Information Assessments Type Assessment Date No Information
== END 2024-09-06 14:19 | disposition home or self-care (01) ==
LOC: ANHIMG 14:26
DX: Z12.31 Encounter for screening mammogram for malignant neoplasm of breast (principal)
CPT/HCPCS: 77063; 77067